=== PATIENT | female | born 1980 | race Caucasian/White ===

== ENCOUNTER 2020-10-31 07:39 | Observation (INO) ==
--- NOTE | 2020-10-06 12:47 | Anesthesiology Consultation ---
Date of Service October 06, 2020 Assessment & Plan (1) Encounter for pre-operative examination: - COVID screening: Per assessment on 10/06: Travel screen negative, no known COVID-19 positive contacts or current COVID-19 related symptoms. Patient vaccin ated. Surgeon arranging preop COVID testing. Awaiting results. - S/P EUA, D&C, endometrial ablation (04/06/19): LMA#4 at [facility] - Check test AM DOS Chart Review Chart Review: Acceptable Risk for Surgery and Patient seen in Pre Admission Test ing Teaching & Discussion Pre-Anesthesia Teaching/Discussion Notes: Instructed NPO after midnight before surgery,except medications with 15 cc of water. Medication instructions provided according to the PAT guidelines. History Surgery Operation Date: 10/31/20 09:20 Proposed Procedures p Total Laparoscopic Hysterectomy, Possible Laparotomy, Cystoscopy - Christiano Freedman MD Height/Weight Height: 5 ft 5 in Weight: 131.7 kg Allergies Allergy/AdvReac Type Severity Reaction Status Date / Time No Known Allergies Allergy Verified 10/02/20 09:16 Medications Home Medications Medication Instructions Recorded Confirmed Last Taken omeprazole 20 mg capsule,delayed 20 mg PO QPM 10/18/18 10/02/20 05/20/20 19:30 release escitalopram oxalate 10 mg tablet 20 mg PO QAM 11/06/18 10/02/20 05/20/20 19:30 (Lexapro) riboflavin (vitamin B2) 100 mg 100 mg PO QAM 03/21/19 10/02/20 05/20/20 19:30 tablet (Vitamin B-2) tizanidine 4 mg capsule (Zanaflex) 4 mg PO HS 04/06/19 10/02/20 05/20/20 19:30 magnesium oxide 500 mg tablet 400 mg PO BID 03/13/20 10/02/20 05/20/20 19:30 cetirizine 10 mg tablet (Zyrtec) 10 mg PO DAILY 05/21/20 10/02/20 05/20/20 19:30 cholecalciferol (vitamin D3) 50 50 mcg PO QAM 05/21/20 10/02/20 05/20/20 19:30 mcg (2,000 unit) capsule (Vitamin D3) famotidine 40 mg tablet (Pepcid) 40 mg PO QAM 05/21/20 10/02/20 05/20/20 19:30 zonisamide 50 mg capsule 50 mg PO BID 05/21/20 10/02/20 05/20/20 19:30 arhgvbj-jazpspqzfwvpo-wjqpcdhe 250 2 tab PO Q6H PRN 10/02/20 10/02/20 Unknown mg-250 mg-65 mg tablet (Excedrin Migraine) fluticasone propionate 50 2 spray INTRANASAL DAILY PRN 10/02/20 10/02/20 Unknown mcg/actuation nasal spray,suspension galcanezumab-gnlm 120 mg/mL 120 mg SUBCUT MONTHLY 10/02/20 10/02/20 Unknown subcutaneous pen injector (Emgality Pen) prochlorperazine maleate 10 mg 10 mg PO UD PRN 10/02/20 10/02/20 Unknown tablet (Compazine) Past Medical History Medical History Anxiety Depression Eosinophilic esophagitis GERD (gastroesophageal reflux disease) controlled Meningioma stable, under surveillance by [facility] neurology Migraine daily headaches Morbid obesity Pineal gland cyst under surveillance by [facility] neurology Exercise / Class Metabolic Activity II 4-5 Yardwork/Stairs/Walk up hill (one FS (no CP, no SOB)) Past Family History Family History Grandmother (Maternal) Family history of diabetes mellitus Mother Family history of reaction to anesthesia SLOW TO WAKE UP-GROGGY Past Surgical History Surgical History History of bilateral tubal ligation History of section History of cholecystectomy History of colonoscopy Age 20 History of D&C EUA, D&C, endometrial ablation (04/06/19): LMA#4 at [facility] History of esophagogastroduodenoscopy (EGD) History of tonsillectomy History of tooth extraction Past Anesthesia History Mother- slow to wake/grogginess History of PONV History of PONV (Dry heaves and chills after c/s) and Hx of Motion Sickness Social History Smoking Status: Never smoker Do You Dip or Chew Tobacco: No Hx Alcohol Use: Yes Alcohol type: wine alcohol intake frequency: holidays/special occasions only Alcohol Intake Frequency Comment: Rare Hx Substance Use: No Review of Systems Patient denies chest pain, shortness of breath, dyspnea on exertion, fever, chills, cough, wheezing, palpitations. Physical Exam Vital Signs VITALS BP 105/73 P 83 TEMP 98.4 SP02 97%RA RESP 18 PHYSICAL Full cervical extension range of motion. Full TMJ range of motion. TMD 4 finger breaths Mallampati Score 2 Dentition: intact Lungs: clear throughout to auscultation Cardiac: regular rate and rhythm, no murmurs noted Spine: normal Extremities: no edema Thick neck Lab Results Anesthesia Preop Results Results Anesthesia Widget: WBC 5.70 K/uL (4.8-10.8) 10/06/20 Hgb 13.8 g/dL (12.0-16.0) 10/06/20 Hct 41.8 % (37-47) 10/06/20 Plt 253 K/uL (130-400) 10/06/20 Na 142 mmol/L (136-145) 10/06/20 K 3.7 mmol/L (3.5-5.1) 10/06/20 Cl 108 mmol/L (98-107) H 10/06/20 CO2 26 mmol/L (21-32) 10/06/20 BUN 12 mg/dl (7-18) 10/06/20 Creat 1.01 mg/dl (0.6-1.2) 10/06/20 Glucose Level 76 mg/dl (70-99) 10/06/20 Blood Type O Positive 10/06/20 Antibody Screen NEGATIVE 10/06/20 Lab Comments: Total bilirubin 0.7 AST 21 ALT 43 Alk phos 175 Testing Electrocardiogram Date: 03/13/20 ST at 107bpm. Otherwise normal ECG. HR at PAT visit 10/06/20 was 83. Echocardiogram Date: 08/10/18 LVEF 60 to 64%. No regional motion abnormality. No significant valvular disease. Other Testing CTA Chest (03/13/20): No acute intrathoracic findings. No evidence of acute pulmonary embolism. No evidence of focal pulmonary consolidation.
--- NOTE | 2020-10-06 12:48 | PAT Medication Instructions ---
Medication Instructions Date of Service October 06, 2020 Home Medications omeprazole 20 mg capsule,delayed release 20 mg PO QPM escitalopram oxalate 10 mg tablet (Lexapro) 20 mg PO QAM riboflavin (vitamin B2) 100 mg tablet (Vitamin B-2) 100 mg PO QAM tizanidine 4 mg capsule (Zanaflex) 4 mg PO HS magnesium oxide 500 mg tablet 400 mg PO BID cetirizine 10 mg tablet (Zyrtec) 10 mg PO DAILY cholecalciferol (vitamin D3) 50 mcg (2,000 unit) capsule (Vitamin D3) 50 mcg PO QAM famotidine 40 mg tablet (Pepcid) 40 mg PO QAM zonisamide 50 mg capsule 50 mg PO BID xegowlq-bipwpqluxbioh-gjjrtpnq 250 mg-250 mg-65 mg tablet (Excedrin Migraine) 2 tab PO Q6H PRN fluticasone propionate 50 mcg/actuation nasal spray,suspension 2 spray INTRANASAL DAILY PRN galcanezumab-gnlm 120 mg/mL subcutaneous pen injector (Emgality Pen) 120 mg SUBCUT MONTHLY prochlorperazine maleate 10 mg tablet (Compazine) 10 mg PO UD PRN ASK your surgeon for instructions aempgxm-rmhnmqfzxlsat-cjfuedjd 250 mg-250 mg-65 mg tablet (Excedrin Migraine) 2 tab PO Q6H PRN ASK your prescriber and surgeon galcanezumab-gnlm 120 mg/mL subcutaneous pen injector (Emgality Pen) 120 mg SUBCUT MONTHLY DO NOT take the morning of surgery riboflavin (vitamin B2) 100 mg tablet (Vitamin B-2) 100 mg PO QAM magnesium oxide 500 mg tablet 400 mg PO BID cetirizine 10 mg tablet (Zyrtec) 10 mg PO DAILY cholecalciferol (vitamin D3) 50 mcg (2,000 unit) capsule (Vitamin D3) 50 mcg PO QAM famotidine 40 mg tablet (Pepcid) 40 mg PO QAM Take morning of surgery With a small sip of water, OTHERWISE NOTHING TO EAT OR DRINK AFTER MIDNIGHT: escitalopram oxalate 10 mg tablet (Lexapro) 20 mg PO QAM zonisamide 50 mg capsule 50 mg PO BID fluticasone propionate 50 mcg/actuation nasal spray,suspension 2 spray INTRANASAL DAILY PRN (if needed) prochlorperazine maleate 10 mg tablet (Compazine) 10 mg PO UD PRN (if needed) Take evening before surgery omeprazole 20 mg capsule,delayed release 20 mg PO QPM tizanidine 4 mg capsule (Zanaflex) 4 mg PO HS magnesium oxide 500 mg tablet 400 mg PO BID zonisamide 50 mg capsule 50 mg PO BID fluticasone propionate 50 mcg/actuation nasal spray,suspension 2 spray INTRANASAL DAILY PRN (if needed) prochlorperazine maleate 10 mg tablet (Compazine) 10 mg PO UD PRN (if needed) Other Notes If you have any questions please call us at [phone] or [phone] or [phone] or [phone]
[~2020-10-31 07:39] MED LIST: LACTATED RINGER'S 1,000 ML IV SCH; LR 15ML/HR IV SCH
[2020-10-31] MEDS ORDERED: ATROPINE SULFATE 0.1 MG/ML 10ML SYR IV PRN (08:11)
[2020-10-31] MEDS ORDERED: ONDANSETRON INJ 2 MG/ML 2 ML VIAL IV PRN ×2 (08:11→15:13)
[2020-10-31] MEDS ORDERED: PROMETHAZINE HCL 12.5 MG in SODIUM CHLORIDE 0.9% 50 ML IV PRN (08:11)
[2020-10-31] MEDS ORDERED: KETOROLAC 30 MG/ML VIAL IV PRN (08:11)
[2020-10-31] MEDS ORDERED: NEOSTIGMINE METHYLSULFATE 1 MG/ML 10ML VIAL ONE (08:22)
[2020-10-31] MEDS ORDERED: PROPOFOL IV EMULSION 10 MG/ML 20 ML VIAL IV ONE (08:22)
[2020-10-31] MEDS ORDERED: LIDOCAINE 2% 2 ML VIAL/AMP(20MG/ML) INFIL ONE (08:22)
[2020-10-31] MEDS ORDERED: ONDANSETRON INJ 2 MG/ML 2 ML VIAL ONE (08:22)
[2020-10-31] MEDS ORDERED: DEXAMETHASONE SOD INJ 4 MG/ML VIAL ONE (08:22)
[2020-10-31] MEDS ORDERED: GLYCOPYRROLATE 0.2 MG/ML VIAL ONE (08:22)
[2020-10-31] MEDS ORDERED: ROCURONIUM BROMIDE 10 MG/ML 5 ML VIAL IV ONE (08:22)
[2020-10-31] MEDS ORDERED: fentaNYL citrate 100 MCG/2 ML VIAL ONE ×2 (08:23→11:23)
[2020-10-31] MEDS ORDERED: MIDAZOLAM HCL 1 MG/ML 2ML VIAL ONE (08:23)
[2020-10-31] MEDS ORDERED: BUPIVACAINE 0.5 % 5 MG/1 ML MPF 30ML VIAL ONE (10:29)
--- NOTE | 2020-10-31 10:31 | History & Physical Bridge Note ---
Date of Service October 31, 2020 History & Physical Bridge Note I have examined the patient, reviewed the History & Physical and in the interval since the performance of the History & Physical I have noted the following changes of clinical significance: no changes noted
[2020-10-31] MEDS ORDERED: HYDROmorphone INJ 2 MG/ML SYR/VIAL ONE (12:18)
[2020-10-31] MEDS ORDERED: FLOSEAL HEMOSTATIC MATRIX 10ML TOP ONE (14:06)
--- NOTE | 2020-10-31 15:12 | Post Operative Brief Note ---
Immediate Post Op Note v1 Date of Surgery October 31, 2020 Pre & Post Diagnosis Operation Date: 10/31/20 09:20 Pre-Op Diagnosis: Menorrhagia, Fibroid Uterine, Failed Endometrial Ablation Post-Op Diagnosis: Menorrhagia, Fibroid Uterine, Failed Endometrial Ablation I identified the patient and participated in the time-out.: Yes Procedure Operation Date: 10/31/20 09:20 Actual Procedures p Total Laparoscopic Hysterectomy, Bilateral Salpingectomy, Cystoscopy(Not Applicable) - Christiano Freedman MD Surgeon Christiano Freedman MD Manager Drive Miya izaguirre Estimated Blood Loss 10 Findings Consistent with Post-Op Diagnosis Drains Sin Catheter
[2020-10-31] MEDS ORDERED: bisacodyL 10 MG SUPP PR PRN (15:13)
[2020-10-31] MEDS ORDERED: PROMETHAZINE HCL 25 MG in SODIUM CHLORIDE 0.9% 50 ML IV PRN (15:13)
[2020-10-31] MEDS ORDERED: SENNA 8.6 MG TAB PO PRN (15:13)
[2020-10-31] MEDS ORDERED: MAGNESIUM HYDROXIDE SUSP 30 ML UDC PO PRN (15:13)
[2020-10-31] MEDS ORDERED: oxyCODONE/ACETAMINOPHEN 5mg/325mg TAB PO PRN (15:15)
[2020-10-31] MEDS ORDERED: LACTATED RINGER'S 1,000 ML IV SCH (15:15)
[2020-10-31] MEDS: fentaNYL citrate 100 MCG/2 ML VIAL IV PRN ×2 (15:18→15:23)
--- NOTE | 2020-10-31 15:48 | Anesthesiology Progress Note ---
Date of Service October 31, 2020 Anesthesia Post Procedure Vital Signs Vital Signs: Temp Pulse Pulse Resp BP Pulse Ox 10/31/20 15:40 36.8 C 81 18 127/77 98 10/31/20 15:30 80 18 128/77 99 10/31/20 15:20 78 18 126/78 98 10/31/20 15:10 86 18 130/77 97 10/31/20 15:00 94 H 18 97/74 L 97 10/31/20 14:51 36.1 C L 105 H 18 138/81 98 10/31/20 08:04 37.4 C 68 18 103/49 L 98
[2020-10-31] MEDS: oxyCODONE/ACETAMINOPHEN 5mg/325mg TAB PO PRN ×2 (19:08→23:23)
[2020-10-31] MEDS: IBUPROFEN 600 MG TAB PO PRN (23:22)
--- NOTE | 2020-11-01 00:44 | Operative Report (OR) ---
DATE OF PROCEDURE: 10/31/2020 INDICATION FOR PROCEDURE: This is a 40-year-old with menorrhagia and uterine fibroids, failed endometrial ablation and medical therapy. PREOPERATIVE DIAGNOSES: 1. Menorrhagia. 2. Fibroid uterus. 3. Failed endometrial ablation and medical therapy. POSTOPERATIVE DIAGNOSES: 1. Menorrhagia. 2. Fibroid uterus. 3. Failed endometrial ablation and medical therapy. PROCEDURE: 1. Exam under anesthesia. 2. Total laparoscopic hysterectomy. 3. Bilateral salpingectomy. 4. Cystoscopy. SURGEON: Christiano Freedman MD. DENTIST PRIVATE PRACTICE: Miya Kennedy. ATTESTATION FOR DENTIST PRIVATE PRACTICE: Aluminum Molding Machine Operator was necessary to help with retraction and manipulation of instruments and to provide better visualization in order to perform safe surgery. ANESTHESIA: General. DRAINS: None. ESTIMATED BLOOD LOSS: 10 mL. INTRAVENOUS FLUIDS: 1600 mL. URINE OUTPUT: 600 mL of clear urine at end of procedure. SPECIMENS: Uterus and cervix, left and right fallopian tubes. OPERATIVE COMPLICATIONS: None. PATIENT CONDITION: Stable. DISPOSITION: Postanesthesia care unit. FINDINGS: Normal female escutcheon. No lesions in the vagina and cervix. Cervix appeared grossly normal. Laparoscopic findings showed about a 15-week size uterus. The patient had a prior section and had extensive adhesion of the bladder to the upper uterine anterior wall. The presence of the uterus distorted the anatomy in the pelvis, otherwise the rest of the pelvic and abdominal anatomy is unremarkable. The fibroid was a posterior fibroid. DESCRIPTION OF PROCEDURE: The patient was taken to the operating room where she was prepped and draped in normal sterile fashion in dorsal lithotomy position. Timeout was called. Sin catheter was placed into the uterus. Weighted speculum was placed in the vagina. Tompkins retractor was used to retract the top of the vagina. Single tooth tenaculum was used to grab the cervix. A VCare uterine manipulator was placed into the uterus. Uterus sounded to about 6 cm. Small size VCare was required. Attention was paid to the abdominal part of the procedure where a supraumbilical incision was made about 4 cm above the umbilicus with an 11 blade. Emilee was used to dissect the subcutaneous space and to palpate the fascia. The Veress needle was introduced into the abdomen at a 45-degree angle while tenting up the abdomen. Abdominal placement of the Veress needle was confirmed with a water- filled syringe. Water drop test and suction test were performed. Abdomen was insufflated with 4 L of CO2. The Veress needle was then removed and a 10 mm trocar introduced under direct visualization with the laparoscope. Once inside the abdomen, the findings as dictated above. Three more accessory ports were placed, two 5 mm ports and a 10 mm port on the left lower pelvis. LigaSure was passed through the left accessory port. Left fallopian tube was identified and grasped 4 cm from the cornua of the uterus with the LigaSure and transected. This was followed by opening of the left anterior leaf of the broad ligament. This allowed for fenestration of the posterior left broad ligament. The mid-section of the left fallopian tube, uterine ovarian and medial ovarian pedicles were transected as well. Same procedure was performed on the contralateral side on the right. Anterior broad ligament dissection was carried to the mid-section of the vesicouterine peritoneum over the bladder using the Harmonic scalpel. Same procedure was carried out from the contralateral side. The posterior broad ligament peritoneum was carefully transected also from both sides over the uterosacral arch in order to displace the ureters laterally. Using traction and countertraction, [place] retractor and irrigation probe was used to further dissect the bladder off the lower segment of the uterus. Bladder pillars and pubovesical fascia were dissected as well. The Harmonic scalpel was used to obtain hemostasis where needed. Uterine manipulator was now placed over the vaginal tissue. The right uterine pedicles were skeletonized and coagulated with the LigaSure. Good hemostasis was obtained. Same procedure was performed on the contralateral side. The cardinal ligaments were transected on both sides. Once good hemostasis was obtained, colpotomy was performed using Harmonic scalpel from both sides. The uterus was removed through the vagina, was still attached to the uterine manipulator. A glove with gauze was placed into the vagina to help maintain pneumoperitoneum. With a grasper the remaining section of the left tube and ovary positioned anteromedially and salpingectomy was performed with LigaSure. Same procedure was performed on contralateral side. The EndoStitch closure device was passed through the 10 mm port on the left and then using the [place] grasper for traction, colpotomy closure was performed. Uterosacral ligaments were incorporated into the closure in order to decrease the risk of prolapse. Lapra-Tys were used with the EndoStitch. Copious amount of irrigation was used to irrigate the abdomen. Attention was paid to the cystoscopy part of the procedure where a 30-degree scope was introduced into the bladder. Inspection of the bladder shows no trauma, no sutures. Bladder appears grossly normal. There is a bubble seen at the anterior part of the bladder above the fluid indicating a close cavity. Both ureteral orifices are seen. There was urine jetting out of those orifices without difficulty. The cystoscope was removed. The Sin catheter placed into the bladder. Attention was paid back to the abdominal part of the procedure where 10 mm ports are closed. The 10 mm port on the left lower quadrant was closed using the Cordell-Lex device. The 10 mm port supraumbilically was closed by grabbing the fascia, closed with Vicryl stitch. Both 4 mm skin incisions were closed with 4-0 Monocryl. The rest of the 5 mm skin closures closed with Dermabond skin sealants. All instruments were removed from the vagina and the uterus and accounted for x2 including sponges, needles, and retractors. The patient is sent to recovery in stable condition. Job ID: [id number] [facility]
[2020-11-01] MEDS: IBUPROFEN 600 MG TAB PO PRN ×2 (03:22→08:50)
[2020-11-01] MEDS: oxyCODONE/ACETAMINOPHEN 5mg/325mg TAB PO PRN ×2 (03:22→08:50)
[2020-11-01 06:49] LABS: Basophils # (auto) 0.01 K/uL (0-0.2); Basophils % (auto) 0.1 %; Hematocrit (blood only) 37.7 % (37-47); Hemoglobin 12.5 g/dL (12.0-16.0); Immature Granulocytes # (auto) 0.07 K/uL (0.00-0.02); Immature Granulocytes % (auto) 0.7 %; Lymphocytes # (auto) 1.37 K/uL (1.2-3.4); Lymphocytes % (auto) 13.3 %; Mean Corpuscular Hemoglobin 30.6 pg (25-34); Mean Corpuscular Hgb Conc 33.2 g/dL (32-36); Mean Corpuscular Volume 92.2 fL (80-100); Monocytes # (auto) 0.68 K/uL (0.11-0.59); Monocytes % (auto) 6.6 %; Neutrophils # (auto) 8.19 K/uL (1.4-6.5); Neutrophils % (auto) 79.3 %; Platelet Count 228 K/uL (130-400); RDW Coefficient of Variation 13.3 % (11.5-14.5); RDW Standard Deviation 44.2 fL (36.4-46.3); Red Blood Count 4.09 M/uL (4.2-5.4); White Blood Count 10.32 K/uL (4.8-10.8)
[2020-11-01 07:23] LABS: BUN Creatinine Ratio 11.4 (10-20); Calcium 8.9 mg/dl (8.5-10.1); Creatinine Clr Calc Pharmacy 91.7 ml/min; Est GFR (African American) 70.6 ml/min
--- NOTE | 2020-11-01 11:48 | Obstetrical Progress Note ---
Date of Service November 01, 2020 Assessment & Plan (1) S/P laparoscopic hysterectomy: Post op day #1 pt doing well disch home with instructions Subjective Review of Systems All systems reviewed & are unremarkable except as noted in HPI & below Physical Exam Constitutional WD/WN, vitals as above Eyes PERRL, conjunctivae normal, anicteric sclerae ENMT external ear and nose normal, oropharynx normal Neck trachea midline, no thyromegaly Respiratory normal respiratory effort, lungs clear to auscultation Cardiovascular RRR, no murmur, no edema Chest (Breasts) normal inspection/palpation of breasts Gastrointestinal (Abdomen) normal bowel sounds, soft, nontender, no hepatosplenomegaly Musculoskeletal no cyanosis or clubbing, extremities motor strength 5/5 Skin + incision (Incision clean,dry and intact) Neurologic patellar DTR's 2+ bilat, sensation intact Psychiatric A+Ox3, euthymic affect Genitourinary no vaginal lesions, no adnexal mass Lymphatic no cervical or axillary lymphadenopathy Results & Data ([facility]) Vital Signs (Past 12 Hours) Vital Signs Temp Pulse Resp BP Pulse Ox 11/01/20 07:30 36.5 C 75 18 94/62 L 95 11/01/20 03:15 37.3 C 88 18 100/64 94
--- NOTE | 2020-11-01 18:41 | Discharge Summary (DS) ---
DATE OF ADMISSION: 10/31/2020. DATE OF DISCHARGE: 11/01/2020. CHIEF COMPLAINT: This is a 40-year-old with history of menorrhagia and fibroid uterus, failed endometrial ablation as well as medical therapy. The patient underwent a total laparoscopic hysterectomy and bilateral salpingectomy and cystectomy on 10/31/2020. Surgery was unremarkable. Details of surgery is in the surgical note. Postop, patient did well and met all milestones. Today, she is stable and is being discharged home in stable condition. PAST MEDICAL HISTORY: History of anxiety, depression, meningioma, migraines, morbid obesity and pineal gland cyst. SURGICAL HISTORY: History of bilateral tubal ligation, section, cholecystectomy, colonoscopy, D and C and dental procedures. SOCIAL HISTORY: The patient denies smoking, drug use or alcohol history The patient is and lives with spouse and children. ALLERGIES: No known drug allergies. FAMILY HISTORY: Noncontributory. PHYSICAL EXAMINATION: VITAL SIGNS: On 11/01/2020 showed blood pressure of 94/60, pulse 76, respiration of 18. HEART: S1 and S2, regular rhythm and rate. LUNGS: Clear to auscultation bilaterally. ABDOMEN: Nontender, nondistended. Incision clean, dry and intact. EXTREMITIES: No cyanosis, clubbing or edema. LABORATORY DATA: On 11/01/2020 showed a white count of 10.3, hemoglobin of 12.5, hematocrit of 37.5 and platelets of 228. CONDITION ON DISCHARGE: Stable. OPERATIONS: Laparoscopic total hysterectomy, bilateral salpingectomy, cystoscopy. DISCHARGE DIAGNOSIS: Postop after the above procedures. PLAN ON DISCHARGE: The patient is discharged home with instructions regarding activity, diet, followup appointment and medications. Job ID: [id number] [facility]
== END 2020-11-01 12:15 | disposition home or self-care (01) ==
LOC: ASU 07:39 → 4N 15:13 → INTOOBSV 15:13